=== PATIENT | male | born 1985 | race Asian ===

== ENCOUNTER → 2016-11-11 | Outpatient (CLI) | payer BC ==
[~2016-11-11] MED LIST: CEPH500C PO; SULF800T23 PO
[2016-11-11 14:23] LABS: CHOLESTEROL/HDL RATIO 3.9
== END | disposition home or self-care (01) ==
LOC: C.LABBC 10:28
PROVIDERS: ATTEND Family Medicine
DX: Z00.00 Encounter for general adult medical examination without abnormal findings (principal)

== ENCOUNTER 2016-12-16 13:54 | Emergency (ER) | payer BC ==
[~2016-12-16] VITALS: Ht 175.3 cm; Wt 72.3 kg
[2016-12-16 13:56] VITALS: BP 109/73; PULSE 74; TEMP 36.4; O2SAT 95; Ht 175.3 cm; Wt 72.3 kg
[2016-12-16] MEDS ORDERED: CEPH500C PO (14:13)
[2016-12-16] MEDS ORDERED: SULF800T23 PO (14:13)
--- NOTE | 2016-12-16 14:14 | EMERGENCY ROOM VISIT NOTE ---
History Report prepared by Kenneth: aJne Romano Under the Supervision of: Dr. Pedro Younger M.D. First contact with patient: 14:01 Chief Complaint: HEADACHE Stated Complaint: SQUIRES, SWOLLEN LUMP BEHIND NECK History of Present Illness The patient is a 31 year old male who presents to the Emergency Room with complaints of worsening swollen area on the back of head starting about a week ago. He has worsening pain with palpation and with turning his head. He also complains of a headache. He denies ear pain, or any other complaints. He shaves his head. He was referred to the Emergency Room by his PCP. He denies any history of infections. Source of History: patient Onset: about a week ago Position: head Quality: other (swollen area) Timing: worsening Modifying Factors (Worsening): other (palpation and turning his head) Associated Symptoms: + headache Review of Systems See HPI for pertinent positives & negatives. A total of 6 systems reviewed and were otherwise negative. Family History Patient reports no known family medical history. Social History Smoking Status: Never Smoker Marital Status: Occupation Status: student Current/Historical Medications Scheduled Cephalexin Monohydrate (Keflex), 500 MG PO TID Sulfa/Trimethoprim (Bactrim Ds 800MG/160MG), 1 TAB PO BID Allergies Coded Allergies: No Known Allergies (Unverified , 12/16/16) Physical Exam Vital Signs Date Time Temp Pulse Resp B/P Pulse Ox O2 Delivery O2 Flow Rate FiO2 12/16/16 13:56 36.4 74 20 109/73 95 Room Air Physical Exam GENERAL: Patient is well appearing and in no acute distress. HEENT: No acute trauma, normocephalic atraumatic. Shaved head. Cellulitis over the left posterior scalp with healing scalp laceration/mic central. Some mild cellulitis extending to the posterior left ear, not consistent with fungal infection. No fluctuance. Mild edema. Mucous membranes moist, no nasal congestion, no scleral icterus. NECK: No stridor, no adenopathy, no meningismus, trachea is midline. LUNGS: No dyspnea. Clear to auscultation and equal bilaterally. No wheeze, no rhonchi. HEART: Regular rate and rhythm. No murmurs, rubs, gallops appreciated. EXTREMITIES: Normal motion all extremities, no cyanosis, no edema. NEUROLOGIC: Alert and oriented, no acute motor or sensory deficits, no focal weakness, cranial nerves grossly intact. SKIN: No rash, no jaundice, no diaphoresis. Medical Decision & Procedures Medications Administered Medications (Trade) Dose Ordered Sig/Sheldon Route Start Time Stop Time Status Last Admin Dose Admin Cephalexin Monohydrate (Keflex Cap) 500 mg NOW ONCE PO 12/16/16 14:15 12/16/16 14:16 DC 12/16/16 14:20 500 MG Trimethoprim/ Sulfamethoxazole (Septra Ds 800/ 160MG Tab) 1 tab NOW ONCE PO 12/16/16 14:15 12/16/16 14:16 DC 12/16/16 14:19 1 TAB ED Course 1401: The patient was evaluated in room B03B. A complete history and physical exam was performed. 1405: Bedside ultrasound reveals no underlying fluid collection. No bogginess of mastoid. 1415: Trimethoprim/Sulfamethoxazole 1 tab PO, Keflex Cap 500 mg PO. Discussed results and discharge instructions: He verbalized understanding and agreement. The patient is ready for discharge. Medical Decision Differential diagnosis includes but is not limited to cellulitis, abscess, fungal infection, mastitis, etc 31 yr old male with left scalp cellulitis around small knick in skin from shaving. Shots reported UTD. Not septic. Ear normal without mastoid TTP. Bedside US without any fluid collection under skin thus mild edema is from cellulitis and not appreciable abscess. Has more bacterial look than fungal infection at this time. Dual coverage abx. Follow up with PCP. RTED if worsening or other concerns. Impression Primary Impression: Cellulitis of scalp Scribe Attestation The scribe's documentation has been prepared under my direction and personally reviewed by me in its entirety. I confirm that the note above accurately reflects all work, treatment, procedures, and medical decision making performed by me. Departure Information Dispostion Home / Self-Care Prescriptions Cephalexin Monohydrate (Keflex) 500 Mg Cap 500 MG PO TID for 7 Days, #21 CAP Prov: Pedro Younger M.D. 12/16/16 Sulfa/Trimethoprim (Bactrim Ds 800MG/160MG) Tab 1 TAB PO BID, #14 TAB Prov: Pedro Younger M.D. 12/16/16 Referrals Faustino Conway D.O.[facility] (PCP) Forms HOME CARE DOCUMENTATION FORM, IMPORTANT VISIT INFORMATION Patient Instructions Cellulitis - [facility], [facility] Additional Instructions Do not shave your head for the next 2 weeks. Return if increased swelling, fevers, pain or other concerns. It may take several days for symptoms to improve.
[2016-12-16] MEDS ORDERED: CEPHALEXIN MONOHYDRATE 250 MG CAP PO ONE (14:15)
[2016-12-16] MEDS ORDERED: SULFAMETHOXAZOLE/TRIMETHOPRIM DS 800/160MG TAB PO ONE (14:15)
== END 2016-12-16 14:22 | disposition home or self-care (01) ==
LOC: C.EDB 13:56
DX: L03.811 Cellulitis of head [any part, except face] (principal)